=== PATIENT | female | born 1975 ===

== ENCOUNTER 2021-03-17 06:38 | Day surgery (SDC) | payer OTHER ==
[~2021-03-17 06:38] MED LIST: CATAFLAN PO
== END 2021-03-17 12:30 | disposition home or self-care (01) ==
LOC: CIR.AMB 06:38
PROVIDERS: ATTEND Orthopaedic Surgery Hand Surgery
DX: G56.01 Carpal tunnel syndrome, right upper limb (principal); M65.311 Trigger thumb, right thumb; Z20.822 Contact with and (suspected) exposure to COVID-19

== ENCOUNTER 2022-02-02 07:28 | Day surgery (SDC) | payer OTHER | END 2022-02-02 14:50 | disposition home or self-care (01) | LOC: CIR.AMB 07:28 | PROVIDERS: ATTEND Orthopaedic Surgery Hand Surgery | DX: G56.02 Carpal tunnel syndrome, left upper limb (principal); M65.342 Trigger finger, left ring finger; M65.312 Trigger thumb, left thumb ==